=== PATIENT | male | born 1955 | race Caucasian/White ===

== ENCOUNTER 2018-01-27 14:52 | Emergency (ER) | payer SELFPAY ==
--- NOTE | 2018-01-27 15:33 | UC ---
Hypertension HPI - HPI Summary HPI Summary: Patient presents with a past medical history of HTN. He had a lapse in his medications for one year. He then went to the [facility] and was put back on his BP meds tenormin 50 mg and lisinopril 10 mg daily. He has been taking those medications as prescribed. This morning he became lightheaded; which he notes used to occur when he was anxious. He notes he is currently not on any anxiety or depression medications. He was on Effexor and then Prozac and states neither of those medications helped him. so for no other reason he took his BP, and states it was elevated, 160/98. He now present for further evaluation of the BP readings from this morning. He denies ROSAS, CP, SOB, weakness, and no further lightheadedness. - History of Current Complaint Chief Complaint: UCGeneralIllness Stated Complaint: HIGH BLOOD PRESSURE Time Seen by Provider: 01/27/18 14:55 Hx Obtained From: Patient Associated Signs And Symptoms: Positive: Negative - Risk Factors Cardiac Risk Factors: Hypertension - Allergies/Home Medications Allergies/Adverse Reactions: Allergies Allergy/AdvReac Type Severity Reaction Status Date / Time No Known Allergies Allergy Verified 01/27/18 15:07 Home Medications: Home Medications Atenolol TAB* [Tenormin TAB* 50 MG] 50 mg PO DAILY 01/27/18 [History Confirmed 01/27/18] FLUoxetine CAP* [PROzac CAP*] 20 mg PO DAILY 01/27/18 [History Confirmed ] Lisinopril TAB* [Prinivil TAB*] 10 mg PO DAILY 01/27/18 [History Confirmed 01/27] PMH/Surg Hx/FS Hx/Imm Hx Previously Healthy: Yes Cardiovascular History: Hypertension Psychological History: Anxiety, Depression - Surgical History Surgical History: None - Family History Known Family History: Positive: Cardiac Disease, Hypertension - Social History Alcohol Use: Occasionally Substance Use Type: None Smoking Status (MU): Never Smoked Tobacco Review of Systems Constitutional: Negative Skin: Negative Eyes: Negative ENT: Negative Respiratory: Negative Cardiovascular: Negative Gastrointestinal: Negative Genitourinary: Negative Motor: Negative Neurovascular: Negative Musculoskeletal: Negative Neurological: Other - lightheaded Psychological: Negative Is Patient Immunocompromised?: No All Other Systems Reviewed And Are Negative: Yes Physical Exam Triage Information Reviewed: Yes Appearance: Well-Appearing Vital Signs: Initial Vital Signs Temp 98.3 F 01/27/18 15:02 Pulse 68 01/27/18 15:02 Resp 18 01/27/18 15:02 BP 171/99 01/27/18 15:02 Pulse Ox 100 01/27/18 15:02 Vital Signs Reviewed: Yes Eye Exam: Normal ENT Exam: Normal Neck exam: Normal Neck: Positive: 1 Respiratory Exam: Normal Cardiovascular Exam: Normal Abdominal Exam: Normal Musculoskeletal Exam: Normal Neurological Exam: Normal Psychological Exam: Normal Skin Exam: Normal Hypertension Course/Dx - Course Course Of Treatment: Patient presents with a past medical history of HTN, and anxiety and depression. He presents today as a result of lightheadedness. He declined an EKG at this viist. He was given refills on his BP meds and his partner felt confident that he could get him into his PCP. I recommend that he take his BP twice daily in the meantime for the PCP so that objective decisions can be made regarding his BP He also need PCP for evaluation and perhap treatment of his anxiety/.depression. He did not want to go to the ER for further evaluation of his elevated BP today as those services could not be offered here. He will remain of his medications as prescribed at this time and if any other symptoms develop he will go to the ER. - Differential Dx/Diagnosis Differential Diagnosis/HQI PQRI: Hypertension Provider Diagnoses: htn Discharge - Sign-Out/Discharge Documenting (check all that apply): Patient Departure - Discharge Plan Condition: Stable Disposition: HOME Prescriptions: Atenolol TAB* [Tenormin TAB* 50 MG] 50 mg PO DAILY #30 tab Lisinopril TAB* [Prinivil TAB 10 MG*] 10 mg PO DAILY #30 tab Patient Education Materials: Chronic Hypertension (DC) Referrals: Mark Rodas NP [Nurse Practitioner] - No Primary Care Phys,NOPCP [Primary Care Provider] - Additional Instructions: Please schedule an appointment with your PCP tomorrow. - Billing Disposition and Condition Condition: STABLE Disposition: Home
[2018-01-27 15:41] VITALS: BP 174/96
== END 2018-01-27 15:52 | disposition home or self-care (01) ==
LOC: UCEAST 14:52
DX: I10 Essential (primary) hypertension (principal); Z79.899 Other long term (current) drug therapy
CPT/HCPCS: 99202; G0463